=== PATIENT | female | born 1985 | race African-American/Black ===

== ENCOUNTER 2016-10-16 12:24 | Emergency (ER) | payer OTHER ==
[~2016-10-16] VITALS: Ht 165.1 cm; Wt 99.8 kg
[~2016-10-16 12:24] MED LIST: IBUPROFEN600 MG ORAL; NKM
[2016-10-16] MEDS ORDERED: Norco 5mg/325mg tab ORAL ONE (13:00)
[2016-10-16] MEDS ORDERED: NORCO 5-325 TA1 EACH ORAL (13:58)
[2016-10-16] MEDS ORDERED: IBUPROFEN600 MG ORAL (13:58)
[2016-10-16 14:04] VITALS: BP 119/76
--- NOTE | 2016-10-16 14:21 | Emergency Room Report ---
History of Present Illness General Chief Complaint: Lower Extremity Injury Source: Patient Present Illness HPI Patient presents emergency department today complaining of left knee strain. Patient states that she felt pop last night when she bent backwards. Now she has more pain in her left knee with movement. She complains of numbness in the lateral aspect of her knee. She denies any swelling. She has pain limited range of motion. Denies any fever chest pain shortness of breath. Patient has never had injury of that knee before. She denies any calf pain or calf swelling or ankle swelling. Symptoms noted to be moderate.No other modifying factors. No other associated signs and symptoms. No other complaints were noted. Patient does not have any DVT risk factors. Allergies: Coded Allergies: NO KNOWN ALLERGIES (Unverified Allergy, Unknown, 02/19/15) Patient History Past Medical History: none Past Surgical History: none Pertinent Family History: none Social History: Denies: alcohol use, drug use, smoking Last Menstrual Period: 09/29/16 : 3 Para: 2 Reviewed Nursing Documentation: PMH: Agreed, PSxH: Agreed Nursing Documentation-PMH Past Medical History: No Stated History Review of Systems All Other Systems: negative except mentioned in HPI Physical Exam Vital Signs Date Time Temp Pulse Resp B/P Pulse Ox O2 Delivery O2 Flow Rate FiO2 10/16/16 12:39 98.2 106 16 119/76 98 Room Air Sp02 EP Interpretation: reviewed, normal General Appearance: normal inspection, well appearing, no apparent distress, alert Head: atraumatic Eyes: bilateral eye normal inspection ENT: normal ENT inspection, hearing grossly normal, normal voice Neck: normal inspection, full range of motion, supple, no bony tend Respiratory: normal inspection, lungs clear, normal breath sounds, no respiratory distress, no retraction, no wheezing Cardiovascular #1: regular rate, rhythm, no edema Gastrointestinal: normal inspection, normal bowel sounds, non tender, soft, no guarding, no hernia Genitourinary: no CVA tenderness Musculoskeletal: normal inspection, back normal, normal range of motion, other - Left knee tenderness Neurologic: normal inspection, alert, responsive, speech normal Psychiatric: normal inspection, judgement/insight normal, mood/affect normal Skin: normal inspection, normal color, no rash Procedures Splinting Splinting : Consent: Verbal Location: left knee Pre-Made Type: MELO wrap Pre-Proc Neuro Vasc Exam: normal Post-Proc Neuro Vasc Exam: normal Patient Tolerated: Well Complications: None Medical Decision Making Diagnostic Impression: Primary Impression: Strain of left knee Qualified Codes: S86.912A - Strain of unspecified muscle(s) and tendon(s) at lower leg level, left leg, initial encounter ER Course Patient presents emergency department today complaining left knee pain. Differential diagnoses include fracture dislocation versus strain. Given patient's presentation I felt the patient require x-rays. X-rays are negative for fracture. Therefore felt the patient likely strained her knee are suffered a ligamentous injury. Melo bandage was applied patient was given a prescription for pain medications and crutches. Recommend outpatient followup.Patient is advised to follow up with primary doctor in 2-3 days and return the emergency room for any worsening symptoms and as needed. Other X-Ray Diagnostic Results X-Ray ordered: left knee # of Views/Limited Vs Complete: 3 View Interpretation: no fractures, no dislocation, no soft tissue swelling Indication: Pain Impression: No acute disease Date Electronically Signed: Oct 16, 2016 Time Electronically Signed: 14:21 Interpreting ER Physician: Venice Lopez MD Last Vital Signs Date Time Temp Pulse Resp B/P Pulse Ox O2 Delivery O2 Flow Rate FiO2 10/16/16 14:04 98.3 16 119/76 98 Room Air 10/16/16 12:39 106 Status: improved Disposition: HOME, SELF-CARE Condition: Stable Scripts Ibuprofen* (MOTRIN*) 600 Mg Tablet 600 MG ORAL Q8H Y for For Pain, #30 TAB 0 Refills Prov: VENICE LOPEZ M.D. 10/16/16 Hydrocodone Bit/Acetaminophen 5-325* (NORCO 5-325*) 1 Each Tablet 1 TAB ORAL Q6H Y for For Pain, #20 TAB 0 Refills Prov: VENICE LOPEZ M.D. 10/16/16 Patient Instructions: Knee Sprain VENICE LOPEZ M.D. Oct 16, 2016 14:21
--- NOTE | 2016-10-16 15:17 | Diagnostic Imaging Report ---
Indication: PAIN Technique: 3 views of the left knee Comparison: None Findings:No acute fractures. No dislocations. Normal bony alignment. Joint spaces are preserved Impression:Negative
== END 2016-10-16 14:22 | disposition home or self-care (01) ==
LOC: EMR 12:49
DX: S86.812A Strain of other muscle(s) and tendon(s) at lower leg level, left leg, initial encounter (principal); X50.1XXA Overexertion from prolonged static or awkward postures, initial encounter; Y92.89 Other specified places as the place of occurrence of the external cause
CPT/HCPCS: 29530; 99284